=== PATIENT | male | born 1950 | race Caucasian/White ===

== ENCOUNTER 2023-11-15 08:47 | Outpatient (CLI) | payer MEDICARE | END 2023-11-15 08:48 | disposition home or self-care (01) | LOC: CSHMRI 08:47 | PROVIDERS: ATTEND Neurological Surgery | DX: M47.12 Other spondylosis with myelopathy, cervical region (principal); M54.6 Pain in thoracic spine; M48.062 Spinal stenosis, lumbar region with neurogenic claudication; M50.01 Cervical disc disorder with myelopathy, high cervical region; M47.814 Spondylosis without myelopathy or radiculopathy, thoracic region; M40.204 Unspecified kyphosis, thoracic region; Z98.890 Other specified postprocedural states; M47.816 Spondylosis without myelopathy or radiculopathy, lumbar region | CPT/HCPCS: 72100; 72141; 72146; 72148 ==